=== PATIENT | male | born 1950 | race Hispanic/Latino ===

== ENCOUNTER 2019-11-06 06:58 | Day surgery (SDC) | payer OTHER ==
[~2019-11-06] VITALS: Ht 185.4 cm; Wt 109.8 kg
[~2019-11-06 06:58] MED LIST: OMEP40CA13 PO; SODIUM CHLORIDE 0.9% 1000ML 1,000 ML IV ONE
[2019-11-06 08:15] VITALS: BP 133/76
[2019-11-06] MEDS ORDERED: PROPOFOL 10 MG/ML 20ML VIAL IV ONE (08:47)
[2019-11-06 09:52] VITALS: BP 105/64
[2019-11-06 09:57] VITALS: BP 115/66
[2019-11-06 10:02] VITALS: BP 109/47
[2019-11-06 10:07] VITALS: BP 107/59
[2019-11-06 10:12] VITALS: BP 129/57
== END 2019-11-06 10:21 | disposition home or self-care (01) ==
LOC: ENDO 06:58 → DAH 06:58 → ENDO 10:21
PROVIDERS: ATTEND Internal Medicine Gastroenterology
DX: C16.4 Malignant neoplasm of pylorus (principal); K25.9 Gastric ulcer, unspecified as acute or chronic, without hemorrhage or perforation; K31.89 Other diseases of stomach and duodenum; B96.81 Helicobacter pylori [H. pylori] as the cause of diseases classified elsewhere; K21.0 Gastro-esophageal reflux disease with esophagitis; K57.30 Diverticulosis of large intestine without perforation or abscess without bleeding; I10 Essential (primary) hypertension; Z86.010 Personal history of colon polyps; Z79.899 Other long term (current) drug therapy
CPT/HCPCS: 43236; 43259; A4215; A4221; A4222; A4223; A4606; A4620; A4663; J2704; J7030

== ENCOUNTER → 2019-11-12 | Outpatient (CLI) | payer OTHER ==
[~2019-11-12] MED LIST changes: +IOHEXOL-350 50ML VIAL IV ONE; -SODIUM CHLORIDE 0.9% 1000ML 1,000 ML IV ONE
== END | disposition home or self-care (01) ==
LOC: RAH 09:40 → EDUNIT# 11-18 09:00
PROVIDERS: ATTEND Internal Medicine Gastroenterology
DX: C16.9 Malignant neoplasm of stomach, unspecified (principal); M47.814 Spondylosis without myelopathy or radiculopathy, thoracic region; M47.817 Spondylosis without myelopathy or radiculopathy, lumbosacral region; K57.30 Diverticulosis of large intestine without perforation or abscess without bleeding
CPT/HCPCS: 71270; 74178; Q9967